=== PATIENT | male | born 1945 | race Caucasian/White ===

== ENCOUNTER → 2016-05-09 | Outpatient (CLI) | payer MEDICARE ==
[2015-10-03 14:00] VITALS: BP 104/55
[~2016-05-09] MED LIST: ASPI325T4 PO; ASPI81TA44 PO; CONTRAST GIVEN MC PRN; FLUT16SP NS; IOHEXOL 350 MG/ML 100ML VIAL. IV ONE; LANS15CA66 PO; LANS30CA17 PO; LEUP22.52 IM; LISI-334 PO; MEGE20TA PO; METF500T4 PO; METO1TAB PO; METO25TA2 PO; QUIN324C3 PO; SIMV20TA3 PO
[2016-05-09 08:29] LABS: CREATININE 1.2 mg/dL (0.7-1.3)
--- NOTE | 2016-05-12 12:55 | RAD ---
CTA chest, abdomen, and pelvis with and without contrast Indication: Follow-up endovascular repair of abdominal aortic aneurysm Comparison study: [facility] CTA abdomen and pelvis from 03/24/2015. Contrast material: 90 cc Omnipaque 350 Technique: Preliminary non-IV contrast CT images were obtained through chest, abdomen, and pelvis. Dynamic IV contrast CT images were then performed through chest, abdomen, and pelvis, and volume rendered three-dimensional and multi planar two-dimensional reconstructions were generated. Delayed postcontrast CT images were then obtained through chest, abdomen, and pelvis, and multi planar two-dimensional reconstructions were again generated. Correlation is made with the previous [facility] CTA from 03/24/2015. CTA chest: 1. Vascular findings: Aortic arch shows atherosclerotic elongation, without intimal flap and without aneurysmal dilatation. Origins of great vessels from aortic arch are widely patent. Coronary artery calcifications are noted. 2. Nonvascular findings: No noncalcified pulmonary soft tissue mass or consolidating infiltrate is detected. No significant thoracic lymphadenopathy is seen. Cardiac size is normal, without vascular congestion, pulmonary edema, or pleural fluid. CTA abdomen and pelvis: 1. Vascular findings: A widely patent bifurcated aortic endograft is again identified. Proximal and the distal landing zones of the endograft remain in excellent position, without evidence of migration. There is no evidence of graft component fracture or separation. There is no endoleak of any classification on today's study. There has been interval decrease in size of the residual thrombosed aneurysm sac, which now measures 40 mm in diameter versus 49 mm on the previous study. There is no evidence of aneurysm leak. Celiac trunk and SMA remain widely patent. There is no significant renal artery stenosis. Hypogastric arteries and visualized portions of external iliac arteries remain widely patent. Distal external iliac arteries and common femoral arteries are not included on this study. 2. Nonvascular findings: Liver and spleen remain unremarkable in size and configuration, without solid parenchymal mass. A solitary, minute gallbladder calculus cannot be excluded. There is no evidence of cholecystitis or biliary obstruction. No pancreatic or adrenal mass is detected. Kidneys remain similar in size, without urinary obstruction. Multiple bilateral simple cysts are again seen. A partially hyperdense, complex cystic lesion within right kidney is unchanged in size. A complex left renal cyst, with mural calcification, is also unchanged. No new or enlarging renal mass is detected. No significant retroperitoneal, pelvic, or inguinal lymphadenopathy is seen. No pelvic abscess, free fluid, or soft tissue mass is seen, although inferior pelvis is not included on this study. Previously described L2 vertebral body compression deformity is unchanged. Impression: Widely patent bifurcated aortic endograft shows no evidence of migration, fracture, or component separation. There is no endoleak of any classification. The residual, thrombosed aneurysm sac has decreased in size from 49 mm to 40 mm since March 2015.
== END | disposition home or self-care (01) ==
LOC: CT 07:46
PROVIDERS: ATTEND Internal Medicine Cardiovascular Disease
DX: I71.4 Abdominal aortic aneurysm, without rupture (principal); I25.10 Atherosclerotic heart disease of native coronary artery without angina pectoris; Z95.828 Presence of other vascular implants and grafts
CPT/HCPCS: 36415; 71275; 74175; 82565; 84520; Q9967

== ENCOUNTER 2016-06-24 18:24 | Inpatient (IN) | payer MEDICARE ==
[~2016-06-24] VITALS: Ht 185.4 cm; Wt 118.4 kg
[~2016-06-24 18:24] MED LIST changes: -CONTRAST GIVEN MC PRN; +HYDR-971 PO; -IOHEXOL 350 MG/ML 100ML VIAL. IV ONE; +LEVO750T31 PO; +METR500T PO
[2016-06-24] MEDS ORDERED: IPRATRPIUM/ALBUTEROL 0.5/2.5MG 3 ML NEBU. NEB ONE (18:45)
[2016-06-24] MEDS ORDERED: ONDANSETRON PF 4 MG/2 ML VIAL. IV ONE (18:45)
--- NOTE | 2016-06-24 18:46 | PHYS DOC ---
Past Medical History Past Medical History: CAD, Diabetes-Type II, Diverticulitis, GERD, High Cholesterol, Hypertension, Other Additional Past Medical Histor: AAA, BY-PASS Past Surgical History: Coronary Bypass Surgery, Other Additional Past Surgical Histo: AAA WITH ENDURANT II ABD STENT GRAFT,HEART CATH ,PROSTATE CA,RADIATION TX Alcohol Use: Rarely Drug Use: None Adult General Chief Complaint Chief Complaint: SHORTNESS OF BREATH HPI HPI 71-year-old male with significant shortness breath is worse in the last day and a half with subjective fever and chills with cough. Patient does have history of cardiac bypass surgery as well as an abdominal aortic graft for a known AAA. Upon arrival, the patient is saturating 85% on room air in no significant distress. He denies any chest pain whatsoever. He states his last cardiac workup was approximately one year ago by Dr. Solares. He denies any abdominal pain. He states subjective nausea but no vomiting. He has an appetite currently. He denies any COPD history. He also claims history of HTN, DM-II, and hyperlipidemia. Review of Systems Review of Systems Constitutional: Has fever and chills [] Eyes: Denies change in visual acuity, redness, or eye pain [] HENT: Denies nasal congestion or sore throat [] Respiratory: Has cough, has shortness of breath [] Cardiovascular: No additional information not addressed in HPI [] GI: Denies abdominal pain, has nausea, denies vomiting, denies bloody stools or diarrhea [] : Denies dysuria or hematuria [] Musculoskeletal: Denies back pain or joint pain [] Integument: Denies rash or skin lesions [] Neurologic: Denies headache, focal weakness or sensory changes [] Endocrine: Denies polyuria or polydipsia [] Current Medications Current Medications Current Medications Medications (Trade) Dose Ordered Sig/Lisbet Start Time Stop Time Status Last Admin Dose Admin Albuterol/ Ipratropium (Duoneb) 3 ml 1X ONCE 06/24/16 18:45 06/24/16 18:45 DC Ondansetron HCl (Zofran) 4 mg 1X ONCE 06/24/16 18:45 06/24/16 18:48 DC 06/24/16 18:57 4 MG Allergies Allergies Allergies Coded Allergies Type Severity Reaction Last Updated Verified No Known Drug Allergies 11/09/14 No Physical Exam Physical Exam Constitutional: Well developed, well nourished, no acute distress, non-toxic appearance. [] HENT: Normocephalic, atraumatic, bilateral external ears normal, oropharynx moist, no oral exudates, nose normal. [] Eyes: PERRLA, EOMI, conjunctiva normal, no discharge. [] Neck: Normal range of motion, no tenderness, supple, no stridor. [] Cardiovascular:Heart rate regular rhythm, no murmur [] Lungs & Thorax: Bilateral breath sounds clear to auscultation [] Abdomen: Bowel sounds normal, soft, no tenderness, no masses, no pulsatile masses. [] Skin: Warm, dry, no erythema, no rash. [] Back: No tenderness, no CVA tenderness. [] Extremities: No tenderness, no cyanosis, no clubbing, ROM intact, no edema. [] Neurologic: Alert and oriented X 3, normal motor function, normal sensory function, no focal deficits noted. [] Psychologic: Affect normal, judgement normal, mood normal. [] Current Patient Data Vital Signs Vital Signs Date Time Temp Pulse Resp B/P Pulse Ox O2 Delivery O2 Flow Rate FiO2 06/24/16 19:00 98 24 146/61 92 Nasal Cannula 4 06/24/16 18:32 99.9 99.9 Lab Values Laboratory Tests Test 06/24/16 18:30 06/24/16 18:35 Influenza Type A Antigen Negative (NEGATIVE) Influenza Type B Antigen Negative (NEGATIVE) White Blood Count 8.2x10^3/uL (4.0-11.0) Red Blood Count 4.95x10^6/uL (4.30-5.70) Hemoglobin 14.6g/dL (13.0-17.5) Hematocrit 43.6% (39.0-53.0) Mean Corpuscular Volume 88fL (79-100) Mean Corpuscular Hemoglobin 29pg (25-35) Mean Corpuscular Hemoglobin Concent 33g/dL (31-37) Red Cell Distribution Width 14.7% (11.5-14.5) H Platelet Count 175x10^3/uL (140-400) Neutrophils (%) (Auto) 81% (31-73) H Lymphocytes (%) (Auto) 9% (24-48) L Monocytes (%) (Auto) 8% (0-9) Eosinophils (%) (Auto) 0% (0-3) Basophils (%) (Auto) 1% (0-3) Neutrophils # (Auto) 6.7x10^3uL (1.8-7.7) Lymphocytes # (Auto) 0.8x10^3/uL (1.0-4.8) L Monocytes # (Auto) 0.7x10^3/uL (0.0-1.1) Eosinophils # (Auto) 0.0x10^3/uL (0.0-0.7) Basophils # (Auto) 0.1x10^3/uL (0.0-0.2) Sodium Level 139mmol/L (136-145) Potassium Level 4.6mmol/L (3.5-5.1) Chloride Level 100mmol/L (98-107) Carbon Dioxide Level 29mmol/L (21-32) Anion Gap 10 (6-14) Blood Urea Nitrogen 17mg/dL (8-26) Creatinine 1.1mg/dL (0.7-1.3) Estimated GFR (Cockcroft-Gault) 66.2 Glucose Level 111mg/dL (70-99) H Calcium Level 9.1mg/dL (8.5-10.1) Troponin I Quantitative < 0.017ng/mL (0.000-0.055) NU-Ghg-K-Type Natriuretic Peptide 62pg/mL (0-124) Laboratory Tests 06/24/16 18:35 Laboratory Tests 06/24/16 18:35 EKG EKG EKG interpreted by me shows a sinus rhythm with a rate of 81 bpm. There are some non-specific ST abnormalities in V4-V6 but the EKG does not meet STEMI critieria. Radiology/Procedures Radiology/Procedures Portable one view of the chest does not demonstrate an acute cardiopulmonary process. Course & Med Decision Making Course & Med Decision Making Pertinent Labs and Imaging studies reviewed. (See chart for details) This 71 yo male with ongoing SOB is requiring 4L of 02 of supplementary oxygen. His chest film and EKG at this time appear fairly unremarkable. I will be obtaining full labwork including influenza swabs. Laboratory workup including influenza swabs were negative and unrevealing. Patient has required 5-6 L of O2 upon my reassessment. Patient continues to be in no distress with his oxygen requirements. Because of his increase in oxygen requirements, I will be imaging his chest with a CT scan to rule out any PE or other acute abnormality. I discussed the need to admit the patient with the hospitalist, Dr. Presley, who agreed to admit the patient for his ongoing hypoxia. Pt was admitted to the floor after receiving a CT of his chest. I discussed the need with Dr. Barrow to follow the CT of his chest and to update Dr. Presley with any acute findings. Dragon Disclaimer Dragon Disclaimer This electronic medical record was generated, in whole or in part, using a voice recognition dictation system. Departure Departure Impression: Primary Impression: Dyspnea Additional Impression: Hypoxia Disposition: ADMITTED INPATIENT Admitting Physician: Belem Presley Condition: STABLE Referrals: CARMEN CHAIREZ (PCP) Problem Qualifiers NOVA VALENCIA DO Jun 24, 2016 18:46
[2016-06-24 18:47] LABS: BASO # 0.1 x10^3/uL (0.0-0.2); BASO % 1 % (0-3); EOS % 0 % (0-3); HEMATOCRIT 43.6 % (39.0-53.0); HEMOGLOBIN 14.6 g/dL (13.0-17.5); LYMPH # 0.8 x10^3/uL (1.0-4.8); LYMPH % 9 % (24-48); MEAN CORPUSCULAR HEMOGLOBIN 29 pg (25-35); MEAN CORPUSCULAR HGB CONC 33 g/dL (31-37); MEAN CORPUSCULAR VOLUME 88 fL (79-100); MONO % 8 % (0-9); NEUT % 81 % (31-73); PLATELET COUNT 175 x10^3/uL (140-400); RED BLOOD COUNT 4.95 x10^6/uL (4.30-5.70); RED CELL DISTRIBUTION WIDTH 14.7 % (11.5-14.5); WHITE BLOOD COUNT 8.2 x10^3/uL (4.0-11.0)
[2016-06-24 18:57] LABS: CALCIUM 9.1 mg/dL (8.5-10.1); CREATININE 1.1 mg/dL (0.7-1.3); GFR 66.2; POTASSIUM 4.6 mmol/L (3.5-5.1)
[2016-06-24 19:42] LABS: OBC FLU VALID
[2016-06-24] MEDS ORDERED: ONDANSETRON PF 4 MG/2 ML VIAL. IV PRN ×2 (19:45→22:22)
[2016-06-24] MEDS ORDERED: ACETAMINOPHEN 325 MG TABLET. PO PRN (19:45)
[2016-06-24] MEDS ORDERED: CONTRAST GIVEN MC PRN (20:15)
[2016-06-24] MEDS ORDERED: IOHEXOL 300 MG/ML 75 ML VIAL IV ONE (20:15)
--- NOTE | 2016-06-24 20:52 | RAD ---
PROCEDURE CT angiogram of the chest with intravenous contrast. HISTORY Shortness of breath. TECHNIQUE Computed tomographic images of the chest were obtained following the administration of 75 cc Omnipaque 300 intravenous contrast. Three-dimensional maximum intensity projection images were obtained. One or more of the following individualized dose reduction techniques were utilized for this examination: 1. Automated exposure control; 2. Adjustment of the mA and/or kV according to patient size; 3. Use of iterative reconstruction technique. COMPARISON 10/08/2015 FINDINGS Evaluation for pulmonary embolism is limited due to suboptimal contrast opacification of the segmental and subsegmental pulmonary arteries. No central pulmonary embolism is seen. There is a mild cardiomegaly. There are findings consistent with coronary artery bypass grafting. There is no thoracic aortic aneurysm or dissection. There are multiple prominent mediastinal and hilar lymph nodes, possibly reactive or physiologic. There is right greater than left lower lobe infiltrate. There is moderate upper lobe predominant emphysema. There is no pneumothorax. There is no pleural effusion. There is a tiny hiatal hernia. There is hepatic steatosis. The adrenal glands are unremarkable. There are multiple bilateral renal cysts, 1 of which on the left is seen within the lateral mid zone measuring approximately 3.6 cm with peripheral calcification. There are few additional hypodense lesions within both kidneys with attenuation slightly greater than fluid, likely hemorrhagic cyst. There is a 2.6 cm isodense lesion within the anterior mid zone of the right kidney which may be solid. There is partial visualization of endograft repair of an abdominal aortic aneurysm. No suspicious osseous lesion is seen. There is multilevel degenerative change throughout the thoracic spine. There is a moderate L2 compression fracture. IMPRESSION 1. Limited evaluation for pulmonary embolism due to suboptimal contrast opacification of the segmental and subsegmental pulmonary arteries. No central pulmonary embolism is seen. 2. Right greater left lower lobe pneumonia. Followup to confirm resolution. 3. Moderate pulmonary emphysema. 4. Multiple hypodense lesions within both kidneys, likely representing cysts. There is a 3.6 cm cyst with peripheral calcification within the lateral left kidney, similar compared to the prior study. There is also a 2.6 cm isodense lesion within the anterior right kidney which may be solid or complex cyst. Renal protocol CT or MRI for renal sonography can be performed to confirm benignity. 5. Hepatic steatosi. 6. Endograft repair of an abdominal aortic aneurysm, partially included on the field of view. Electronically signed by: Terri Womack (Jun 24, 2016 20:50:33)
[2016-06-24 22:05] VITALS: BP 114/57
[2016-06-24] MEDS ORDERED: HYDROCODONE/APAP 5/325MG TABLET. PO PRN (22:30)
[2016-06-24] MEDS ORDERED: DEXTROSE 50% 25 GM / 50ML DISP.SYRIN. IV PRN (22:30)
[2016-06-24] MEDS ORDERED: CEFTRIAXONE SODIUM 1 GM in IV NORMAL SALINE 50ML 50 ML IV SCH (22:30)
[2016-06-24] MEDS ORDERED: GUAIFENESIN DM 200MG/20MG 10 ML SYRUP. PO PRN (22:30)
[2016-06-24] MEDS ORDERED: AZITHROMYCIN 500 MG in IV NORMAL SALINE 250ML 250 ML IV SCH (23:00)
--- NOTE | 2016-06-25 00:19 | ACF ---
Admission Forms Criteria GENERAL ADMISSION CRITERIA (Place 'X' for any and all applicable criteria): Admission is indicated for ANY ONE of the following: [ ]I. Hemodynamic instability as indicated by ANY ONE of the following(1)(2) (3)(4)(5): [ ]a) Vital sign abnormality not readily corrected by appropriate treatment within 12 to 24 hours indicated by ANY ONE of the following: [ ]i) Hypotension [ ]ii) Symptomatic Tachycardia unresponsive to treatment (eg , analgesia, fluids, sedation as indicated) [ ]iii) Orthostatic vital sign changes unresponsive to treatment (eg, fluids) [ ]b) Vital sign abnormality that is severe indicated by ANY ONE of the following: [ ]i) Inadequate perfusion indicated by ANY ONE of the following: [ ]1) Lactic acidosis (greater than 2 mmol/L) [ ]2) New abnormal capillary refill (greater than 3 seconds) [ ]3) Other metabolic acidosis (arterial pH less than 7.35) not otherwise explained [ ]4) Reduced urine output [ ]5) Altered mental status [ ]6) Myocardial Ischemia [ ]v) Mean arterial pressure[A] less than 60 mm Hg [ ]vi) Mean arterial pressure[A] less than 70 mm Hg after 30 minutes of appropriate treatment (eg, fluid resuscitation) [ ]vii) IV inotropic or vasopressor medication required to maintain adequate blood pressure or perfusion [ ]viii) Sustained heart rate greater than 120 beats per minute in adult or child 6 years or older[B]] [ ]II. Hypertension requiring inpatient treatment as indicated by ANY ONE of the following(6)(7)(8): [ ]a) SBP greater than 220 mm Hg or DBP greater than 120 mm Hg despite treatment [ ]b) SBP greater than 140 mm Hg or DBP greater than 100 mm Hg with evidence of acute end organ damage as indicated by ANY ONE of the following: [ ]i) Encephalopathy [ ]ii) Acute renal failure as indicated by new onset of ANY ONE of the following(9)(10)(11)(12)(13): [ ]1) A 3-fold rise in serum creatinine from baseline [ ]2) Serum creatinine greater than 4 mg/dL ( 354 micromoles/L) with acute rise greater than 0.5 mg/dL (44.2 micromoles/L) [ ]3) Reduction of more than 75% in estimated glomerular filtration rate from baseline [ ]4) Estimated glomerular filtration rate less than 35 mL/min/1.73m2 (0.59 mL/sec/1.73m2) in child up to 18 years of age [ ]5) Cessation of urine output indicated by ALL of the following: [ ]A. Adequate volume status [ ]B. Inadequate urine output as indicated by ANY ONE of the following: [ ]a. Urine output less than 0.3 mL/kg/hr for 24 hours [ ]b. Anuria (urine output less than 0.1 mL/kg/hr) for 12 hours [ ]iii) Aortic dissection [ ]iv) Myocardial ischemia [ ]v) Left ventricular heart failure [ ]vi) Retinal hemorrhage [ ]vii) Other significant finding [ ]c) Hypertension in child requiring inpatient treatment as indicated by ALL of the following(14)(15)(16): [ ]i) Outpatient treatment not effective, not available, or not appropriate [ ]ii) SBP or DBP greater than 95th percentile for age [ ]iii) Evidence of acute end organ damage as indicated by ANY ONE of the following: [ ]1) Altered mental status [ ]2) Acute renal failure as indicated by new onset of ANY ONE of the following(9)(10)(11)(12)(13): [ ]A. A 3-fold rise in serum creatinine from baseline [ ]B. Serum creatinine greater than 4 mg/dL (354 micromoles/L) with acute rise greater than 0.5 mg/dL (44.2 micromoles/L) [ ]C. Reduction of more than 75% in estimated glomerular filtration rate from baseline [ ]D. Estimated glomerular filtration rate less than 35 mL/min/1.73m2 (0.59 mL/sec/1.73m2)in child up to 18 years of age [ ]E. Cessation of urine output indicated by ALL of the following: [ ]a. Adequate volume status [ ]b. Inadequate urine output as indicated by ANY ONE of the following: [ ]1) Urine output less than 0.3 mL/kg/hr for 24 hours [ ]2) Anuria (urine output less than 0.1 mL/kg/hr) for 12 hours [ ]3) Severe headache [ ]4) Visual disturbance [ ]5) Retinal hemorrhage [ ]6) Other significant finding [ ]III. Acute cardiac or peripheral ischemia as indicated by ANY ONE of the following: [ ]a) Acute coronary syndrome(17)(18) [ ]b) Acute peripheral ischemia (eg, pulseless, cool, mottled, or cyanotic extremity)(19) [ ]IV. Cardiac arrhythmias or findings of immediate concern indicated by ANY ONE of the following(20)(21): [ ]a) Heart rhythms that are inherently dangerous or unstable indicated by ANY ONE of the following(22)(23)(24): [ ]i) Resuscitated ventricular fibrillation or cardiac arrest [ ]ii) Ventricular escape rhythm [ ]iii) Sustained ventricular tachycardia (30 seconds or more of ventricular rhythm at greater than 100 beats per minute) [ ]iv) Nonsustained ventricular tachycardia and ANY ONE of the following: [ ]1) Suspected cardiac ischemia as cause or consequence of ventricular tachycardia [ ]2) In setting of acute myocarditis [ ]b) Unstable cardiac conduction defects indicated by ANY ONE of the following(24)(25)(26): [ ]i) Type II second-degree atrioventricular block [ ]ii) Third-degree atrioventricular block [ ]iii) New-onset left bundle branch block with suspected myocardial ischemia [ ]c) Any heart rhythm and ANY ONE of the following(22)(23)(27)(28)( 29): [ ] i) Continuous long-term ECG monitoring needed (eg, initiation of drug requiring monitoring for more than 24 hours) [ ] ii) Patient has automatic implanted cardioverter defibrillator that is repeatedly firing, malfunctioning, or in need of immediate adjustment of settings beyond the scope of ambulatory or observation care. [ ]d) Heart rhythms of concern due to ANY ONE of the following: [ ]i) Hypotension [ ]ii) Respiratory distress [ ]iii) Association with other significant symptoms (eg, bradycardia with syncope or ongoing dizziness, supraventricular tachycardia with chest pain) (27)(28) (30) [ ] V. Severe heart failure as indicated by ANY ONE of the following ( 31)(32): [ ]a) Respiratory distress [ ]b) Hypotension [ ]c) Anasarca (refractory to outpatient therapy) [ ]d) Cardiac arrhythmias of immediate concern [ ]e) Myocardial ischemia [X]. Respiratory abnormalities, including ANY ONE of the following(33)(34) (35)(36): [ ]a) Respiratory rate greater than 30 breaths per minute unresponsive to treatment [A] [ ]b) New saturation of arterial oxygen less than 90% [ ]c) New partial pressure of carbon dioxide greater than 44 mm Hg ( 5.9 kPa) [X]d) Supplemental oxygen or respiratory treatments needed that are new or not performable at other levels of care [ ]e) New-onset cyanosis [ ]f) Inability to protect airway [ ]g) Chronic lung disease with severe deterioration (not responsive to emergency and observation care treatment as appropriate) as indicated by ANY ONE of the following(34)(36 ): [ ]i) SaO2 5% below baseline in patient with chronic hypoxemia [ ]ii) New requirement for supplemental oxygen to keep SaO2 at baseline or acceptable level [ ]iii) Required supplemental oxygen performable only in acute inpatient setting [ ]iv) Severe airflow or ventilation abnormalities [ ]v) Previously mobile patient unable to walk between rooms [ ]vi Inability to eat or sleep due to dyspnea [ ]vii) Rapid rate of exacerbation onset [ ]viii) Altered mental status ]VII. Severe airflow or ventilation abnormalities (not responsive to emergency and observation care treatment as appropriate) as indicated by ANY ONE of the following(33)(34)(35)(37): [ ]a) PCO2 greater than 42 mm Hg (5.6 kPa) and pH less than 7.35 (new ) [ ]b) Documented PCO2 increased more than 5 mm Hg (0.7 kPa) from disease baseline [ ]c) Airflow measurements [B] less than 60% of previous best or predicted (eg, peak expiratory flow rate less than 300 L/minute) despite intensive emergent treatment [C] [ ]d) Required respiratory treatments that are performable only in acute inpatient setting [ ]VIII. Impending or actual respiratory arrest ( Also use Respiratory Failure GRG for severe respiratory disease and long-term mechanical ventilation patients) [ ]IX. Neurologic abnormalities, including ANY ONE of the following: [ ]a) New findings that suggest ANY ONE of the following: [ ]i) KICKING MACHINE O[employer]ATOR infection(38) [ ]ii) Cerebral bleeding, ischemia, or vasospasm(39)(40) [ ]iii) Increased intracranial pressure, hydrocephalus, or cerebral edema(41)(42)(43) [ ]iv) Spinal cord injury(44) [ ]b) Uncontrolled seizures(45) [ ]c) New-onset coma (eg, Stephanie coma scale score less than 9) or unexplained abnormal mental status (eg, Stephanie coma scale score less than 14) [D](41)(46)(47) [ ]X. New-onset severe neurologic findings requiring inpatient care; examples include(42)(48)(49): [ ]a) Papilledema [ ]b) Cerebral edema [ ]c) Mass effect on CT scan [ ]XI. Suspected acute intra-abdominal process with peritoneal signs, abdominal mass, or similar findings (50)(51)(52) [ ]XII. Severe physiologic disorder remaining after emergency or observation level care (as appropriate) as indicated by ANY ONE of the following (53): [ ]a) Significant dehydration [ ]b) Diabetic ketoacidosis [ ]c) Hyperglycemic hyperosmolar state (eg, osmolality greater than 320 mOsm/kg (mmol/kg) [ ]d) Hypoglycemia [ ]e) Other (new) acid-base disorder with pH less than 7.35 or greater than 7.5(54) [ ]f) Thyroid storm (55) [ ]g) Myxedema coma (55) [ ]XIII. Abdominal abnormalities with ANY ONE of the following(56)(57): [ ]a) Absent bowel sounds with complete ileus [ ]b) Signs of intestinal obstruction or peritonitis [E] [ ]c) Nausea and vomiting that cannot be controlled with outpatient or observation care [ ]XIV. Acute renal failure as indicated by new onset of ANY ONE of the following(9)(10)(11)(12)(13): [ ]a) A 3-fold rise in serum creatinine from baseline [ ]b) Serum creatinine greater than 4 mg/dL (354 micromoles/L) with acute rise greater than 0.5 mg/dL (44.2 micromoles/L) [ ]c) Reduction of more than 75% in estimated glomerular filtration rate from baseline [ ]d) Estimated glomerular filtration rate less than 35 mL/min/ 1.73m2 (0.59 mL/sec/1.73m2) in child up to 18 years of age [ ]e) Cessation of urine output indicated by ALL of the following: [ ]i) Adequate volume status [ ]ii) Inadequate urine output as indicated by ANY ONE of the following: [ ]1) Urine output less than 0.3 mL/kg/hr for 24 hours [ ]2) Anuria (urine output less than 0.1 mL/kg/hr) for 12 hours [ ]XV. Significant uremic complications as indicated by ANY ONE of the following(58)(59)(60): [ ]a) Outpatient therapy is ineffective or not feasible for ANY ONE of the following: [ ]i) Severe heart failure [ ]ii) Severehypertension [ ]iii) Pleural effusion [ ]iv) Pericarditis or pericardial effusion [ ]b) Cardiac arrhythmias of immediate concern [ ]c) Intractable nausea or vomiting [ ]d) Recurrent seizures [ ]e) Encephalopathy [ ]f) Bleeding abnormalities (eg, platelet dysfunction) with active (eg, gastrointestinal) bleeding [ ]g) Dialysis indicated before long-term access or ambulatory arrangements can be made [ ]h) Significant metabolic or electrolyte abnormalities (eg, severe acidosis or hyperkalemia) [ ]XVI. High fever or other high-risk infection situation as indicated by ANY ONE of the following(61)(62)(63)(64): [ ]a) Outpatient and observation care antimicrobial treatment unavailable, not effective, or not appropriate [ ]b) Documented bacteremia [ ]c) Temperature greater than 40.5 degrees C (104.9 degrees F) ( oral) [ ]d) Temperature greater than 39.5 degrees C (103.1 degrees F) ( oral) or less than 36 degrees C (96.8 degrees F) (rectal) that does not respond to e treatment and observation care [ ] XVII. Temperature less than 95 degrees F (35 degrees C)(rectal)(65) [ ] XVIII. Severe nutritional abnormalities as indicated by ALL of the following (66)(67): [ ]a) Inability to tolerate or establish sufficient oral or other enteral nutrition in outpatient setting [ ]b) Parenteral nutrition regimen need that must be implemented on inpatient basis [ ] XIX. Severe electrolyte abnormalities indicated by ALL of the following(68) (69)(70): [ ]a) Electrolytes and associated findings are not as expected for patient baseline or acceptable treatment effects. [ ]b) Severe abnormalities indicated by ANY ONE of the following: [ ]i) Sodium less than 130 mEq/L (mmol/L) (new) [ ]ii)Sodium less than 135 mEq/L (mmol/L) with ANY ONE of the following: [ ]1) Uncorrectable (to near normal or chronic baseline) after trial of outpatient and emergency treatment [ ]2) Altered mental status [ ]3) Seizures [ ]4) Severe medical etiology requiring inpatient management (eg, heart failure, hypovolemia) [ ]iii) Sodium greater than 155 mEq/L (mmol/L) [ ]iv) Sodium greater than 150 mEq/L (mmol/L) with ANY ONE of the following: [ ]1) Uncorrectable (to near normal or chronic baseline) with outpatient and emergency treatment [ ]2) Altered mental status [ ]3) Seizures [ ]4) Severe medical etiology (eg, hypovolemia, diabetes insipidus) [ ]v) Potassium less than 2.5 mEq/L (mmol/L) despite outpatient and emergency treatment [ ]vi) Potassium less than 3 mEq/L (mmol/L) with ANY ONE of the following: [ ]1) Weakness [ ]2) Cardiac abnormality (eg, arrhythmia, conduction disturbance) [ ]3) Cardiac ischemia [ ]4) Ileus [ ]5) Ongoing medical cause requiring inpatient management (eg, acute renal wasting or SIADH) [ ]6) Other severe symptoms [ ]vii) Potassium greater than 6.5 mEq/L (mmol/L) [ ]viii) Potassium greater than 5 mEq/L (mmol/L) with ANY ONE of the following: [ ]1) Uncorrectable (to near normal or chronic baseline) with outpatient and emergency treatment [ ]2) Severe ECG findings [F] [ ]3) Acute worsening of renal failure (creatinine greater than 2.5 mg/dL (221 micromoles/L) or significant elevation for age and size) [ ]4) Severe weakness [ ]5) Severe medical etiology (eg, hemolysis, infection, drug overdose) [ ]ix) Calcium less than 7 mg/dL (1.75 mmol/L) despite outpatient and emergency treatment (72) [ ]x) Calcium less than 8 mg/dL (2 mmol/L) with significant symptoms or findings; examples include(72): [ ]1) Altered mental status [ ]2) Muscle spasms [ ]3) Seizures [ ]4) Breathing difficulty [ ]5) Cardiac abnormality (eg, arrhythmia or conduction disturbance) [ ]xi) Calcium greater than 14 mg/dL (3.5 mmol/L)(72) [ ]xii) Calcium greater than 12 mg/dL (3 mmol/L) with ANY ONE of the following(72): [ ]1) Uncorrectable (to near normal or chronic baseline) with outpatient and emergency treatment [ ]2) Significant dehydration or hypovolemia as indicated by ALL of the following(70)(73)(74): [ ]A. Not resolved with initial treatments [ ]B. Clinically significant dehydration as indicated by ANY ONE of the following: [ ]a. Vomiting refractory to outpatient treatment (ie, precluding oral rehydration) [ ]b. Inability to drink [ ]c. Hypernatremia or other electrolyte abnormality unable to be corrected with outpatient and emergency treatment [ ]d. Failure to remain hydrated with outpatient therapy [ ]e. Reduced urine output [ ]f. Hypotension [ ]g. Serious cause for dehydration requiring acute hospitalization (eg, bowel obstruction, increased intracranial pressure, infectious cause) [ ]h. Child with ANY ONE of the following(75): [ ]1) Severe abdominal tenderness [ ]2) Adequate care not available at home [ ]3) Severe dehydration ( greater than 9% loss of body weight) [ ]4) Significant symptoms or findings; examples include: [ ]A. Altered mental status [ ]B. Cardiac abnormality (eg, arrhythmia, conduction disturbance) [ ]C. Malignant etiology requiring inpatient treatment [ ]xiii) Phosphorus less than 1 mg/dL (0.32 mmol/L) [ ]xiv) Phosphorus less than 1.5 mg/dL (0.48 mmol/L) with ANY ONE of the following: [ ]1) Patient unresponsive to outpatient and emergency treatment [ ]2) Significant symptoms or findings; examples include: [ ]A. Weakness [ ]B. Altered mental status [ ]C. Breathing difficulty [ ]D. Seizures [ ]E. Rhabdomyolysis [ ]xv) Phosphorus greater than 10 mg/dL (3.2 mmol/L) [ ]xvi) Phosphorus greater than 4.5 mg/dL (1.45 mmol/L) (new) with ANY ONE of the following: [ ]1) Severe medical etiology (eg, crush injury, acute renal failure) [ ]2) Associated hypocalcemia with significant findings; examples include: [ ]A. Neurologic symptoms [ ]B. Altered mental status [ ]C. Muscle spasms [ ]D. Seizures [ ]E. Breathing difficulty [ ]F. Cardiac abnormality (eg, arrhythmia, conduction disturbance) [ ]xvii) Magnesium less than 1 mg/dL (0.41 mmol/L) [ ]xviii) Magnesium less than 1.5 mg/dL (0.62 mmol/L) with ANY ONE of the following: [ ]1) Patient unresponsive to outpatient and emergency treatment [ ]2) Associated hypocalcemia with significant findings; examples include: [ ]A. Altered mental status [ ]B. Muscle spasms [ ]C. Seizures [ ]D. Breathing difficulty [ ]E. Cardiac abnormality (eg, arrhythmia , conduction disturbance) [ ]3) Associated hypokalemia (potassium less than 3 mEq/L (mmol/L)) with risk of arrhythmia [ ]xix) Magnesium greater than 4 mEq/L (2 mmol/L) [ ]xx) Magnesium greater than 2.5 mEq/L (1.25 mmol/L) with significant symptoms or findings; examples include: [ ]1) Weakness [ ]2) Altered mental status [ ]3) Cardiac abnormality (eg, arrhythmia, conduction disturbance) [ ]4) Breathing difficulty [ ]5) Severe medical etiology (eg, renal failure, hypovolemia) [ ]xxi) Uric acid greater than 20 mg/dL (1190 micromoles/L)(76) [ ]xxii) Uric acid greater than 8 mg/dL (476 micromoles/L) with significant symptoms or findings of tumor lysis syndrome; examples include(76): [ ]1) Creatinine greater than 1.5 times upper limit of normal [ ]2) Cardiac abnormality (eg, arrhythmia, conduction disturbance) [ ]3) Seizure [ ]XX. Acute blood loss causing significant abnormality as indicated by ANY ONE of the following(77)(78): [ ]a) Hemoglobin less than 10 g/dL (100 g/L) (not baseline) [ ]b) Hematocrit less than 30% (0.30) (not baseline) [ ]c) Repeat hematocrit decreased more than 2% (0.02) [ ]d) Uncontrolled bleeding [ ]XXI. Severe anemia indicated by ANY ONE of the following(78)(79): [ ]a) Altered mental status [ ]b) Chest pain [ ]c) Exertional dyspnea [ ]d) Syncope [ ]e) Other findings suggesting inadequate perfusion [ ]f) Treatment with transfusion or volume replacement is ineffective at resolving ANY ONE of the following [G]: [ ]i) Tachycardia for age [ ]ii) Orthostatic vital sign changes as indicated by ANY ONE of the following(80): [ ]1) Fall in SBP of 20 mm Hg or more 1 to 3 minutes after patient sits or stands from recumbent position [ ]2) Fall in DBP of 10 mm Hg or more 1 to 3 minutes after patient sits or stands from recumbent position [ ]XXII. High-risk low platelet count as indicated by ANY ONE of the following( 81)(82): [ ]a) Severe or life-threatening bleeding (eg, intracranial, major gastrointestinal, or extensive mucosal bleeding), with any reduced platelet count [ ]b) Platelet count less than 20,000/mm3 (20 x109/L) with any active bleeding [ ]c) Platelet count less than 10,000/mm3 (10 x109/L) with minor purpura or petechiae [ ]d) Platelet count less than 5000/mm3 (5 x109/L) [ ]e) Low platelet count with hemolytic anemia [ ]XXIII. Disseminated intravascular coagulation(77)(83) [ ]XXIV. Severe adverse drug or systemic toxin reaction requiring inpatient treatment; examples include(84)(85): [ ]a) Serotonin syndrome(86) [ ]b) Neuroleptic malignant syndrome(86) [ ]c) Cholinergic syndrome with severe symptoms (eg, bronchorrhea, weakness, mental status changes, seizures) [ ]d) Sympathetic syndrome with severe symptoms (eg, seizures, mental status changes, cardiac dysrhythmias) [ ]e) Anticholinergic syndrome [ ]XXV. Severe pain requiring acute inpatient management as indicated by ALL of the following (87)(88)(89): [ ]a) Continuous or frequent (eg, every 2 to 4 hours) parenteral analgesics required [H] [ ]b) Rapid improvement expected from treatment or acute intervention (eg, surgery, anesthesia procedure) [ ]XXVI.Severe behavioral health issues judged unmanageable at a lower level of care (eg, residential) in a patient who is ANY ONE of the following(91) [ ]a) Acutely suicidal [ ]b) A danger to self (eg, self-mutilating or suicidal behavior) [ ]c) A danger to others (eg, assaultive or homicidal behavior) [ ]d) Incapacitated because of grave disability (eg, inability to provide for self at lower level of care) (92) [ ]XXVII. Inpatient monitoring needed; examples include(1)(3)(87)(93)(94)(95)(96 ): [ ]a) Vital signs, neurologic signs, or vascular checks more frequently than every 4 hours [ ]b) Cardiac or respiratory monitoring beyond the scope (eg, over 24 hours) of observation care [ ]c) Pulmonary artery catheter monitoring [ ]d) Suspected compartment syndrome(97) (98) [ ]e) Cerebral bleeding, hydrocephalus, or vasospasm monitoring [ ]f) Increased intracranial pressure or cerebral edema monitoring [ ]g) monitoring [ ]XXVIII. Treatment requiring inpatient care; examples include: [ ]a) IV fluid to replace significant ongoing losses (greater than 3 L/m2 per day)(53) [ ]b) High concentration oxygen (greater than 40%)(33)(99)(100) [ ]c) Frequent respiratory therapy (more frequently than every 4 hours) to maintain airflow rates greater than 60% of baseline(33)(99)(100) [ ]d) Epidural analgesia(87) [ ]e) IV anticoagulation, vasoactive, or antiarrhythmic medication(19 )(23) [ ]f) Acute thrombolytics (generally require 24 hours of observation )(101)(102) [ ]XXIX. Emergency procedures needed; examples include: [ ]a) Emergency inpatient surgery [ ]b) Temporary pacemaker placement(103) [ ]c) Chest tube placement with active evacuation (eg, suction, drainage)(104) [ ]d) Emergent cardioversion(105) [ ]e) Emergent cardiac or vascular procedures (eg, cardiac catheterization, angioplasty) (17)(18) [ ]f) Emergent dialysis access placement and institution(10)(106) [ ]g) Emergent pericardiocentesis(107) [ ]h) Emergent plasmapheresis or leukapheresis(83) [ ]i) Emergent tracheostomy The original [employer] content created by [employer] has been revised. The portions of the content which have been revised are identified through the use of italic text or in bold, and [facility] has neither reviewed nor approved the modified material. All other unmodified content is copyright [employer]. Please see references footnoted in the original [facility] edition 2016 Admission Criteria Met?: Yes MARTIAN PRICE Jun 25, 2016 00:19
[2016-06-25 03:35] VITALS: BP 102/48
[2016-06-25 04:40] LABS: BASO # 0.1 x10^3/uL (0.0-0.2); BASO % 0 % (0-3); EOS % 0 % (0-3); HEMATOCRIT 39.3 % (39.0-53.0); HEMOGLOBIN 13.1 g/dL (13.0-17.5); LYMPH # 0.9 x10^3/uL (1.0-4.8); LYMPH % 6 % (24-48); MEAN CORPUSCULAR HEMOGLOBIN 29 pg (25-35); MEAN CORPUSCULAR HGB CONC 33 g/dL (31-37); MEAN CORPUSCULAR VOLUME 88 fL (79-100); MONO % 6 % (0-9); NEUT % 88 % (31-73); PLATELET COUNT 151 x10^3/uL (140-400); RED BLOOD COUNT 4.49 x10^6/uL (4.30-5.70); RED CELL DISTRIBUTION WIDTH 14.4 % (11.5-14.5); WHITE BLOOD COUNT 14.2 x10^3/uL (4.0-11.0)
[2016-06-25 04:52] LABS: CALCIUM 8.6 mg/dL (8.5-10.1); CREATININE 1.4 mg/dL (0.7-1.3); GFR 50.1; POTASSIUM 4.7 mmol/L (3.5-5.1)
[2016-06-25 06:03] LABS: PLT ESTIMATE ADEQUATE (ADEQUATE)
[2016-06-25 07:00] VITALS: BP 100/51
[2016-06-25] MEDS: IPRATRPIUM/ALBUTEROL 0.5/2.5MG 3 ML NEBU. NEB SCH ×3 (07:16→15:14)
[2016-06-25] MEDS: INSULIN ASPART 300 UNITS/3 ML INSULN.PEN SQ SCH ×2 (08:00→12:04)
--- NOTE | 2016-06-25 08:30 | RAD ---
Indication shortness of air. History of hypertension. A single view of the chest was obtained and is compared to a study 10/12/2007. Postoperative changes are noted. Heart size is within normal limits. There is no gross congestive heart failure. There is some volume loss at the lung bases compatible with atelectasis or pneumonia. Significant pleural fluid in either lung is not seen. IMPRESSION: Modest volume loss at the lung bases right slightly greater than left compatible with atelectasis or pneumonia
--- NOTE | 2016-06-25 08:33 | PDOC ---
Provider Note Provider Note [id number] acute resp fail ae of copd pneumonia abc, neb, ics,... HARPER TRUJILLO MD Jun 25, 2016 08:33
[2016-06-25] MEDS ORDERED: LISINOPRIL 20 MG TABLET PO SCH (09:00)
[2016-06-25] MEDS ORDERED: FLUTICASONE 50MCG/NASAL SPRAY 16GM BOTTLE. NS SCH (09:00)
[2016-06-25] MEDS ORDERED: METOPROLOL SUCC 24HR ER 25 MG TAB.ER.24H. PO SCH (09:00)
[2016-06-25] MEDS ORDERED: ASPIRIN 81 MG TAB.CHEW PO SCH (09:00)
[2016-06-25] MEDS ORDERED: BUDESONIDE 0.5 MG/2 ML NEBU NEB SCH (09:00)
--- NOTE | 2016-06-25 10:15 | RAD ---
Indication renal cyst versus mass. Grayscale imaging targeted to the kidneys was performed. Note is made of a CT examination of the chest, incorporating the upper abdomen, referencing renal masses one day earlier. The right kidney measures 15 x 6.3 x 6.4 cm. There is a complex nodule measuring 2.6 cm in the midportion of the right kidney. This nodule, on CT, appears slightly larger, by approximately 5 to 6 mm when compared to a CT examination 10/23/2011. It may represent a complex cyst. A solid mass is not excluded. Surveillance imaging, assessing stability, should be considered. Alternatively a multiphase contrast CT examination could be performed. The mass appears to be at least partially cystic if not completely cystic in nature. The left kidney measures 15.6 x 6 x 6.3 cm. There are several cysts in the left kidney the largest measuring almost 4 cm. The urinary bladder appears grossly normal. IMPRESSION: There are cysts in both kidneys. There is either a complex cyst or a cystic/solid mass in the right kidney. Surveillance imaging assessing stability should be considered. See above discussion.
[2016-06-25 11:00] VITALS: BP 108/58
--- NOTE | 2016-06-25 11:30 | EKG ---
[facility] [address] [place] [address] Test Date: 2016-06-24 Test Time: 18:33:08 Pat Name: SHIRA VOGT Department: Room: Gender: M Fine Arts Chair: : 1945 Requested By: NOVA VALENCIA Order Number: [id number] Reading MD: Measurements Intervals [place] Rate: 81 P: -26 NE: 170 QRS: 23 QRSD: 84 T: 91 QT: 342 QTc: 398 Interpretive Statements SINUS RHYTHM ATRIAL PREMATURE COMPLEX(ES) QRS(T) CONTOUR ABNORMALITY CONSIDER ANTEROLATERAL MYOCARDIAL DAMAGE POSSIBLY ABNORMAL ECG RI6.01 No previous ECG available for comparison
--- NOTE | 2016-06-25 11:55 | CONS ---
DATE OF CONSULTATION: 06/25/2016 I was asked to see this 71-year-old gentleman for shortness of breath, cough, abnormal CT of the chest. HISTORY OF PRESENT ILLNESS: He does have history of a [id number]-ekwd smoking, stopped smoking in 2007. He has not been diagnosed with COPD or asthma. He ____ exercise. He started to have increased shortness of breath, cough with yellow sputum production and fever 2 days ago. He denies chest pain. He has chest tightness. He denies wheezing. He denies runny nose or gastroesophageal reflux symptoms with asthma and he takes Flonase and Protonix. PAST MEDICAL HISTORY: Diabetes mellitus, hypertension, coronary artery disease status post CABG in 2007, abdominal aortic aneurysm repair and hyperlipidemia. ALLERGIES: No known drug allergies. MEDICATION: Currently he is on albuterol and Atrovent nebulizer t.i.d., azithromycin, Rocephin. SOCIAL HISTORY: History of 68-[id number]-[id number] smoking, stopped smoking in 2007. FAMILY HISTORY: There is no history of lung disease. REVIEW OF SYSTEMS: As mentioned as above. He does snore and has excessive daytime sleepiness with ____. Other systems otherwise negative. PHYSICAL EXAMINATION: GENERAL: Overall weight gentleman. VITAL SIGNS: His O2 saturation is 96% on 5 liters of oxygen, respiratory rate 20, heart rate 66, blood pressure 100/61, temperature 97.8. HEENT: Normocephalic, atraumatic. Pupils are equal, round and reactive to light. Throat is clear. There is dependent palate, high tongue base. Nose: There is inflamed mucosa. NECK: There is no JVD, lymphadenopathy or organomegaly. CARDIOVASCULAR: Regular rate and rhythm. PMI is nondisplaced. CHEST: Inspection is normal. LUNGS: There is bibasilar crackles, a few end expiratory wheezing. ABDOMEN: Soft, bowel sounds are good. There is no mass. EXTREMITIES: There is no clubbing or cyanosis. LYMPHATICS: There is no lymphadenopathy. SKIN: Chronic changes. NEUROLOGIC: Alert and oriented x 3. LABORATORY DATA: I reviewed the following lab data: CT of the chest show central pulmonary embolism, lower lobe infiltrate, right more than left; emphysematous changes; hypodense lesions in both kidneys, hepatic steatosis and/or graft repair of abdomen and aortic aneurysm. Influenza A and B is negative. Sodium 138, potassium 4.7, chloride 102, CO2 of 26, glucose 130, BUN 23, creatinine 1.4. Troponin less than 0.01. WBC 14.2, hemoglobin 13.1, platelets 151. IMPRESSION: 1. Acute hypoxemic respiratory failure, multifactorial in etiology. 2. Abnormal CT of the chest show some pulmonary infiltrate. 3. Pneumonia. 4. Emphysema/chronic obstructive pulmonary disease. 5. Snoring and excessive daytime sleepiness on obesity problem with obstructive sleep apnea hypopnea syndrome. 6. Coronary artery disease. 7. Diabetes mellitus. 8. Hypertension. 9. Hyperlipidemia. PLAN AND RECOMMENDATION: 1. Titrate FiO2 to keep O2 saturation 92%. 2. Continue bronchodilator. 3. Add inhale to corticosteroid. 4. Sputum culture. 5. Urine for legionella and strep pneumoniae antigen. 6. Continue Rocephin and erythromycin. 7. I do recommend PFTs as an all questions. 8. I have discussed obstructive sleep apnea hypopnea syndrome. The importance of treatment, if one treated increased cardiovascular ____. I do recommend as put patient. 9. Agree with ultrasound of kidneys. 10. Protonix for stress ulcer prophylaxis. 11. I start Lovenox for DVT prophylaxis. 12. The findings and recommendations were discussed with the patient and his . He understood and agreed to proceed with the plan. I have answered all of the questions. Thank you very much for allowing me to participate in care of this very nice gentleman. RADHA GARCIA MD DR: RADHA/candice JOB#: [id number] / [id number]
--- NOTE | 2016-06-25 13:29 | PDOC ---
Provider Note Provider Note 23 hr note done, JOb [id number] Titrate O2 down See if 6MW needed Otherwise could go home today Rx inc ANA LUISA Gtz MD Jun 25, 2016 13:29
--- NOTE | 2016-06-25 14:05 | SSS ---
ADMIT DATE: 06/24/2016 A 23-HOUR ADMIT AND DISCHARGE SUMMARY CHIEF COMPLAINT: Short of breath. HISTORY OF PRESENT ILLNESS: The patient is a 71-year-old male who has shortness of breath, cough, maybe fevers at home? He had low O2 sat in the Emergency Room, hence admitted. Eventually, chest x-ray initially did not, maybe showed atelectasis, unclear if there were any infiltrates. This was followed through by a CAT scan to rule out PE because of the significant hypoxia at the Emergency Room and CAT scan was able to verify a left lower lobe lung pneumonia. The patient does relate to me symptoms of pneumonia including productive sounding cough, colored sputum, fevers at home. He does not have a white count. He is breathing much better now, although he is on nasal cannula at 5 liters. He claims he ambulates without getting short of breath today. He did have pneumonia many times in the past. He is a previous smoker, has quit many years ago. Emphysematous changes are seen or appreciated on the CAT scan. I did consult Pulmonary last night, based on reviewing with the ER physician. Pulmonary has no further recommendations ____ nebulizations, antibiotics. Did discuss with the that pneumonia can be treated as outpatient. We will titrate his O2 sats down today to see if he needs O2, otherwise 6-minute walk test can be done if he needs oxygenation. then he will go home with oxygen. In the past episodes of his pneumonia, he did not have to have oxygenation. PAST MEDICAL HISTORY: Open heart surgery in distant past, hypertension, and dyslipidemia, on a statin. ALLERGIES: No known drug allergies. SOCIAL HISTORY: Previous smoker, no alcohol, no street drugs. FAMILY HISTORY: Reviewed and noncontributory. REVIEW OF SYSTEMS: All 14-point systems were reviewed. Pertinent positives are in the HPI, all else is negative. PHYSICAL EXAMINATION: GENERAL: Awake, alert, oriented x 3, not in acute respiratory distress. VITAL SIGNS: Blood pressure 108/58, heart rate 74, respiratory rate 12, and satting 95% on 5 liters of nasal cannula. LUNGS: Decreased breath sounds. No crackles, rhonchi, or wheezing. Normal rate and rhythm. No murmurs, rubs or gallops, JVD nondistended. ABDOMEN: Obese and nontender, normal active bowel sounds. GENITALIA: Appropriate for age. EXTREMITIES: Negative edema. Pulses full and equal. No pallor, cyanosis ____. NEUROLOGIC: Otherwise within normal limits. PSYCHIATRIC: Otherwise within normal limits. SKIN: Otherwise within normal limits. ASSESSMENT AND PLAN: 1. Left lower lobe pneumonia. 2. Emphysema in a previous ex-smoker. 3. Obesity. 4. History of coronary artery bypass graft, distant past, hypertension, dyslipidemia, all status quo. 5. Hypoxic respiratory failure, needing O2 requirements with plan of care. Titrate O2 now. Levaquin p.o. on discharge. ProAir HFA, on discharge. They already have nebulization machines at home. If he drops significantly, then will prescribe O2 at home. HOSPITAL COURSE: The patient was admitted overnight, felt better overnight with treatment of nebulizations O2 antibiotics. Left lower lobe pneumonia on CAT scan. Emphysema on CAT scan. Nontoxic appearing, ambulating well with no SOA. Requiring 5 liters nasal cannula, though to maintain sats at 95%. We will also do a 6-minute walk. DISPOSITION: To home, either with or without home O2. CONSULTS PERFORMED: Dr. Lucas, Pulmonary. PROCEDURES PERFORMED: None. Time spent with this patient education and counseling greater than 50%, 45 minutes cumulative. ANA LUISA MIRANDA MD DR: /nts JOB#: [id number] / [id number]
[2016-06-25 15:00] VITALS: BP 109/59
[2016-06-25] MEDS ORDERED: SIMVASTATIN 20 MG TABLET PO SCH (21:00)
[2016-06-26 16:19] LABS: SPECIMEN SOURCE Urine (.)
[2016-06-27] MEDS ORDERED: METFORMIN 500 MG TABLET. PO SCH (08:00)
--- NOTE | 2016-06-28 16:11 | CONS ---
DATE OF CONSULTATION: 06/25/2016 I was asked to see this 71-year-old gentleman for shortness of breath, cough, abnormal CT of the chest. HISTORY OF PRESENT ILLNESS: He does have history of a [id number]-tvdg smoking, stopped smoking in 2007. He has not been diagnosed with COPD or asthma. He ____ exercise. He started to have increased shortness of breath, cough with yellow sputum production and fever 2 days ago. He denies chest pain. He has chest tightness. He denies wheezing. He denies runny nose or gastroesophageal reflux symptoms with asthma and he takes Flonase and Protonix. PAST MEDICAL HISTORY: Diabetes mellitus, hypertension, coronary artery disease status post CABG in 2007, abdominal aortic aneurysm repair and hyperlipidemia. ALLERGIES: No known drug allergies. MEDICATION: Currently he is on albuterol and Atrovent nebulizer t.i.d., azithromycin, Rocephin. SOCIAL HISTORY: History of 73-[id number]-kxav smoking, stopped smoking in 2007. FAMILY HISTORY: There is no history of lung disease. REVIEW OF SYSTEMS: As mentioned as above. He does snore and has excessive daytime sleepiness with ____. Other systems otherwise negative. PHYSICAL EXAMINATION: GENERAL: Overall weight gentleman. VITAL SIGNS: His O2 saturation is 96% on 5 liters of oxygen, respiratory rate 20, heart rate 66, blood pressure 100/61, temperature 97.8. HEENT: Normocephalic, atraumatic. Pupils are equal, round and reactive to light. Throat is clear. There is dependent palate, high tongue base. Nose: There is inflamed mucosa. NECK: There is no JVD, lymphadenopathy or organomegaly. CARDIOVASCULAR: Regular rate and rhythm. PMI is nondisplaced. CHEST: Inspection is normal. LUNGS: There is bibasilar crackles, a few end expiratory wheezing. ABDOMEN: Soft, bowel sounds are good. There is no mass. EXTREMITIES: There is no clubbing or cyanosis. LYMPHATICS: There is no lymphadenopathy. SKIN: Chronic changes. NEUROLOGIC: Alert and oriented x 3. LABORATORY DATA: I reviewed the following lab data: CT of the chest show central pulmonary embolism, lower lobe infiltrate, right more than left; emphysematous changes; hypodense lesions in both kidneys, hepatic steatosis and/or graft repair of abdomen and aortic aneurysm. Influenza A and B is negative. Sodium 138, potassium 4.7, chloride 102, CO2 of 26, glucose 130, BUN 23, creatinine 1.4. Troponin less than 0.01. WBC 14.2, hemoglobin 13.1, platelets 151. IMPRESSION: 1. Acute hypoxemic respiratory failure, multifactorial in etiology. 2. Abnormal CT of the chest show some pulmonary infiltrate. 3. Pneumonia. 4. Emphysema/chronic obstructive pulmonary disease. 5. Snoring and excessive daytime sleepiness on obesity problem with obstructive sleep apnea hypopnea syndrome. 6. Coronary artery disease. 7. Diabetes mellitus. 8. Hypertension. 9. Hyperlipidemia. PLAN AND RECOMMENDATION: 1. Titrate FiO2 to keep O2 saturation 92%. 2. Continue bronchodilator. 3. Add inhale to corticosteroid. 4. Sputum culture. 5. Urine for legionella and strep pneumoniae antigen. 6. Continue Rocephin and erythromycin. 7. I do recommend PFTs as an all questions. 8. I have discussed obstructive sleep apnea hypopnea syndrome. The importance of treatment, if one treated increased cardiovascular ____. I do recommend as put patient. 9. Agree with ultrasound of kidneys. 10. Protonix for stress ulcer prophylaxis. 11. I start Lovenox for DVT prophylaxis. 12. The findings and recommendations were discussed with the patient and his . He understood and agreed to proceed with the plan. I have answered all of the questions. Thank you very much for allowing me to participate in care of this very nice gentleman. HARPER TRUJILLO M.D. : FRANKY/candice JOB#: [id number] / [id number]
== END 2016-06-25 16:00 | disposition home or self-care (01) | DRG 189 ==
LOC: ER 18:24 → 5 NORTH 19:32
PROVIDERS: ADMIT Internal Medicine; ATTEND Internal Medicine
DX: J96.01 Acute respiratory failure with hypoxia (principal); J18.9 Pneumonia, unspecified organism; J44.0 Chronic obstructive pulmonary disease with (acute) lower respiratory infection; J44.1 Chronic obstructive pulmonary disease with (acute) exacerbation; I25.10 Atherosclerotic heart disease of native coronary artery without angina pectoris; G47.33 Obstructive sleep apnea (adult) (pediatric); E78.5 Hyperlipidemia, unspecified; E78.00 Pure hypercholesterolemia, unspecified; E11.9 Type 2 diabetes mellitus without complications; I10 Essential (primary) hypertension; E66.9 Obesity, unspecified; K21.9 Gastro-esophageal reflux disease without esophagitis; Z85.46 Personal history of malignant neoplasm of prostate; Z86.79 Personal history of other diseases of the circulatory system; Z87.891 Personal history of nicotine dependence; Z95.1 Presence of aortocoronary bypass graft; Z99.81 Dependence on supplemental oxygen; Z68.34 Body mass index [BMI] 34.0-34.9, adult
CPT/HCPCS: 36415; 71010; 71275; 76770; 80048; 82947; 83880; 84484; 85007; 85027; 87070; 87205; 87449; 87804; 93005; 94250; 94620; 94640; 96374; J0456; J0696; J1815; J2405; J7050; J7620; Q9967; 99285-25; J7030

== ENCOUNTER → 2016-09-04 | Outpatient (CLI) | payer MEDICARE ==
[~2016-09-04] MED LIST changes: +IOHEXOL 180 MG/ML 10 ML VIAL. ONE; +PROAIR HFA8.5 GM INH; +methylPREDNISolone ACETATE 40 MG/ML VIAL. ONE; +methylPREDNISolone ACETATE 80 MG/ML VIAL. ONE
--- NOTE | 2016-09-05 02:41 | PAIN ---
DATE OF SERVICE: 09/04/2016 DIAGNOSES: Lumbar radiculopathy with lumbar spinal stenosis and lumbar degenerative disk disease. HISTORY OF PRESENT ILLNESS: The patient is a 71-year-old male who returns for followup status post lumbar epidural steroid injections, last seen 03/22/2016. The patient did very well with about 80% improvement in the low back and right lower extremity pain. The patient reports that it is returning now over the past month or so with increased pain in low back radiating to the posterior gluteus, posterior lateral thigh, lateral anterior thigh, more on the right than the left, but occasionally on both sides. The patient reports anywhere from a 4 to a 9 on a scale of 10, 9 with increased activity, standing, walking. He has been sleeping well at night, has not been waking up from sleep. He reports the pain is radiating and constant, this is off and on, becoming more noticeable with activity here over the past few weeks. The patient reports no new motor or sensory deficits, no new bowel or bladder incontinence or other complaints. PHYSICAL EXAMINATION: VITAL SIGNS: Today, the patient's blood pressure is 129/68, pulse is 50, respirations are 20, temperature 97.8 degrees Fahrenheit. Height is 6 feet 1 inch, weight is 264 pounds. GENERAL: The patient is awake, alert, oriented, appropriate, has a very pleasant demeanor. HEENT: Head shows normocephalic, atraumatic. Extraocular movements are intact and symmetrical. Oral cavity shows mucous membranes moist and pink. Dentition is intact. NECK: Shows anterior throat is supple without palpable lymphadenopathy noted. Swallow reflex is symmetrical. CHEST: Shows normal on inspection. Breath sounds are clear to auscultation bilaterally. HEART: Shows S1 and S2 clear. ABDOMEN: Soft, nontender, nondistended. No palpable organomegaly. He has no new rebound or guarding demonstrated. BACK: Shows spine grossly in the midline. The lumbar paraspinous muscle shows some mild tenderness with palpation only diffusely in the middle and lower distribution, but is symmetrical with normal-appearing lumbar lordotic curvature. No radiation of pain. The patient has good rotational motion both laterally as well as extension and flexion of lumbar spine without difficulty. LOWER EXTREMITIES: Show deep tendon reflexes 2+, in the patella 1+, talocalcaneal tendons are equal. Motor exam is strong with 5/5 dorsiflexion, extension, quadriceps and hamstring flexion and symmetrical. Options were discussed with the patient. The patient's old chart was reviewed as his current medication regimen updated and current review of systems updated today as well. We will proceed with a lumbar epidural steroid injection first in the series with fluoroscopic guidance. Risks were again discussed including, but not limited to bleeding, infection, possibility of epidural hematoma and subsequent neurologic compromise, dural puncture, headaches, spinal cord and/or nerve damage, side effects of steroid medication and poor results regarding pain control. The patient understands and wished to proceed. The patient will return to the clinic in approximately 2 weeks for followup, was counseled as to return appointment, activity level and side effects to be aware of. DIAGNOSES: Lumbar radiculopathy with lumbar spinal stenosis, lumbar degenerative disk disease. PROCEDURES: Lumbar epidural steroid injection in translaminar approach at the L4-L5 level using C-arm fluoroscopic guidance under sterile prep and drape using local anesthetic. MEDICATION INJECTED: 120 mg Depo-Medrol plus 10 mL of preservative-free normal saline, 2 mL of Isovue for contrast. CONDITION AT DISCHARGE: Stable. The patient tolerated the procedure well and had no complications. DANDY QUIROGA MD DR: EVE/candice JOB#: [id number] / [id number]
== END | disposition home or self-care (01) ==
LOC: PNCL 11:04
PROVIDERS: ATTEND Anesthesiology
DX: M51.16 Intervertebral disc disorders with radiculopathy, lumbar region (principal); M48.06 Spinal stenosis, lumbar region; E78.00 Pure hypercholesterolemia, unspecified; I10 Essential (primary) hypertension; K21.9 Gastro-esophageal reflux disease without esophagitis; M19.90 Unspecified osteoarthritis, unspecified site; E11.9 Type 2 diabetes mellitus without complications; Z85.46 Personal history of malignant neoplasm of prostate; Z72.0 Tobacco use
CPT/HCPCS: 62323; J1030; J1040

== ENCOUNTER → 2017-03-27 | Outpatient (CLI) | payer MEDICARE ==
[~2017-03-27] MED LIST changes: -ASPI325T4 PO; +ASPI325T8 PO; -LANS15CA66 PO; +LANS15CA78 PO; -LANS30CA17 PO; +LANS30CA66 PO; -METO1TAB PO; +METO1TAB28 PO
--- NOTE | 2017-03-27 10:51 | PAIN ---
DATE OF SERVICE: 03/27/2017 DIAGNOSES: Lumbar radiculopathy with lumbar degenerative disk disease and lumbar spinal stenosis. HISTORY OF PRESENT ILLNESS: The patient is a 71-year-old male who returns for followup status post lumbar epidural steroid injection x 1, last seen 09/04/2016. The patient did very well with this with approximately 95% improvement. The pain has been returning now for about 3 weeks in the low back, more on the right side than the left, now posterior gluteus, posterior lateral thigh, lateral anterior thigh and medial lower leg to some extent. The patient reports it as a 10 on a scale 10 as worst, is 8-9 on average, 2 at its least, is a 3 today. The patient reports it is sharp, radiating, off and on in intensity, but becoming more noticeable, worse with activity, walking, standing, change in positions. The patient reports it is better with sitting or lying down, does not awake him from sleep at night, sleeps about 8 hours at a time without difficulty or interruption from sleep. The patient reports no loss of motor function, but increasing fatigability of the right lower extremity. PHYSICAL EXAMINATION: VITAL SIGNS: Today, the patient's blood pressure 138/65, pulse 53, respirations 18, temperature 97.5 degrees Fahrenheit, height 6 feet 1 inch, weights 255 pounds. GENERAL: The patient is awake, alert, oriented, appropriate, very pleasant demeanor. HEENT: Head shows normocephalic, atraumatic. Extraocular movements are intact, symmetrical. Oral cavity: Mucous membranes moist and pink. Dentition is intact. NECK: Shows anterior throat supple without palpable lymphadenopathy noted. Swallow reflex symmetrical. CHEST: Shows normal with inspection. Breath sounds clear to auscultation bilaterally. HEART: Shows S1, S2 clear. No murmurs auscultated. ABDOMEN: Soft, nontender, nondistended. No palpable organomegaly is noted. No rebound or guarding demonstrated. BACK: Shows spine grossly in the midline, normal appearing thoracic kyphosis and lumbar lordotic curvature. Lumbar paraspinous muscle shows symmetrical on inspection. On palpation shows some moderate tenderness bilaterally with palpation of the lumbar paraspinous muscles, mostly in the middle and lower distribution, slightly more on the right than the left, but present bilaterally. No tenderness over the sacrum or sacroiliac regions or the spinous processes. The patient has good rotational motion of lumbar spine, both laterally as well as extension and flexion without difficulty. EXTREMITIES: The patient's lower extremities show deep tendon reflexes 2+ in the patellar tendons and tendo calcaneus tendons are 1+ bilaterally. Motor exam is strong with 5/5 dorsiflexion, extension, quadriceps and hamstring flexion. Peripheral pulses are 1+ posterior tibial and dorsalis pedis pulses. No peripheral edema is noted. No clubbing, no cyanosis. Options were discussed with the patient. The patient's old chart was reviewed. His current medication regimen updated. Current review of systems updated today as well. We will proceed with a lumbar epidural steroid injections, the first in this series. Risks were again discussed including, but not limited to bleeding, infection, possibility of epidural hematoma, subsequent neurologic compromise, dural puncture, headaches, spinal cord and/or nerve damage, side effects of steroid medication and poor results regarding pain control. The patient understands and wished to proceed. The patient will return to clinic in approximately 2 weeks for followup, was counseled on return appointment, activity level and side effects to be aware of. DIAGNOSES: Lumbar radiculopathy with lumbar degenerative disk disease, lumbar spinal stenosis. PROCEDURE: Lumbar epidural steroid injection, translaminar approach at the L4-L5 level using C-arm fluoroscopic guidance under sterile prep and drape using local anesthetic. MEDICATION INJECTED: A total of 120 mg Depo-Medrol, plus 10 mL preservative-free normal saline and 2 mL Isovue for contrast. CONDITION AT DISCHARGE: Stable. The patient tolerated the procedure well, had no complications. DANDY QUIROGA MD DR: EVE/candice JOB#: [id number] / [id number]
== END ==
LOC: PNCL 07:56
PROVIDERS: ATTEND Anesthesiology
DX: M51.16 Intervertebral disc disorders with radiculopathy, lumbar region (principal); M48.061 Spinal stenosis, lumbar region without neurogenic claudication; I25.2 Old myocardial infarction; E78.00 Pure hypercholesterolemia, unspecified; I10 Essential (primary) hypertension; K21.9 Gastro-esophageal reflux disease without esophagitis; M19.90 Unspecified osteoarthritis, unspecified site; E11.9 Type 2 diabetes mellitus without complications; Z85.46 Personal history of malignant neoplasm of prostate; Z95.1 Presence of aortocoronary bypass graft
CPT/HCPCS: 62323; J1030; J1040

== ENCOUNTER → 2017-06-20 | Outpatient (CLI) | payer MEDICARE ==
[~2017-06-20] MED LIST changes: -ASPI325T8 PO; -ASPI81TA44 PO; -FLUT16SP NS; -HYDR-971 PO; +IOHEXOL 180 MG/ML 10 ML VIAL.; -IOHEXOL 180 MG/ML 10 ML VIAL. ONE; -LANS15CA78 PO; -LANS30CA66 PO; -LEUP22.52 IM; -LEVO750T31 PO; -LISI-334 PO; -MEGE20TA PO; -METF500T4 PO; -METO1TAB28 PO; -METO25TA2 PO; -METR500T PO; -PROAIR HFA8.5 GM INH; -QUIN324C3 PO; -SIMV20TA3 PO; +methylPREDNISolone ACETATE 40 MG/ML VIAL.; -methylPREDNISolone ACETATE 40 MG/ML VIAL. ONE; +methylPREDNISolone ACETATE 80 MG/ML VIAL.; -methylPREDNISolone ACETATE 80 MG/ML VIAL. ONE
== END | disposition home or self-care (01) ==
LOC: PNCL 09:24
DX: M51.16 Intervertebral disc disorders with radiculopathy, lumbar region (principal); M48.061 Spinal stenosis, lumbar region without neurogenic claudication; E78.00 Pure hypercholesterolemia, unspecified; K21.9 Gastro-esophageal reflux disease without esophagitis; I10 Essential (primary) hypertension; E11.9 Type 2 diabetes mellitus without complications; M19.90 Unspecified osteoarthritis, unspecified site; Z72.0 Tobacco use; Z86.39 Personal history of other endocrine, nutritional and metabolic disease; Z95.1 Presence of aortocoronary bypass graft; Z85.46 Personal history of malignant neoplasm of prostate
CPT/HCPCS: 62323; J1030; J1040; Q9965

== ENCOUNTER → 2017-09-04 | Outpatient (CLI) | payer MEDICARE ==
[2017-09-04 07:35] LABS: BLOOD UREA NITROGEN 19 mg/dL (8-26)
[2017-09-04 07:35] LABS: GFR 73.7
[2017-09-04] MEDS: IOHEXOL 300 MG/ML 100ML VIAL. IV (08:10)
== END | disposition home or self-care (01) ==
LOC: CT 06:46
DX: I71.4 Abdominal aortic aneurysm, without rupture (principal); J44.9 Chronic obstructive pulmonary disease, unspecified; I10 Essential (primary) hypertension; E11.9 Type 2 diabetes mellitus without complications; R16.1 Splenomegaly, not elsewhere classified; Z79.01 Long term (current) use of anticoagulants
CPT/HCPCS: 36415; 74175; 82565; 84520; Q9967

== ENCOUNTER → 2017-10-10 | Outpatient (CLI) | payer MEDICARE | END | disposition home or self-care (01) | LOC: PNCL 07:31 | DX: M51.16 Intervertebral disc disorders with radiculopathy, lumbar region (principal); M48.061 Spinal stenosis, lumbar region without neurogenic claudication | CPT/HCPCS: G0463 ==

== ENCOUNTER → 2017-10-31 | Outpatient (CLI) | payer MEDICARE ==
[~2017-10-31] MED LIST changes: +BUPIVACAINE MPF 0.25% 10 ML VIAL.; +LIDOCAINE 1% PF 2 ML VIAL.
== END | disposition home or self-care (01) ==
LOC: PNCL 11:10
DX: M51.16 Intervertebral disc disorders with radiculopathy, lumbar region (principal); M48.061 Spinal stenosis, lumbar region without neurogenic claudication; M47.817 Spondylosis without myelopathy or radiculopathy, lumbosacral region; I10 Essential (primary) hypertension; E78.00 Pure hypercholesterolemia, unspecified; K21.9 Gastro-esophageal reflux disease without esophagitis; M19.90 Unspecified osteoarthritis, unspecified site; E11.9 Type 2 diabetes mellitus without complications; F17.200 Nicotine dependence, unspecified, uncomplicated; Z79.82 Long term (current) use of aspirin; Z79.899 Other long term (current) drug therapy; Z95.1 Presence of aortocoronary bypass graft; Z85.46 Personal history of malignant neoplasm of prostate; Z79.84 Long term (current) use of oral hypoglycemic drugs
CPT/HCPCS: 64493; 64494; J1030; J1040; J3490; Q9965

== ENCOUNTER → 2017-11-14 | Outpatient (CLI) | payer MEDICARE | END | disposition home or self-care (01) | LOC: PNCL 10:08 | DX: M51.16 Intervertebral disc disorders with radiculopathy, lumbar region (principal); M47.896 Other spondylosis, lumbar region; M48.061 Spinal stenosis, lumbar region without neurogenic claudication | CPT/HCPCS: G0463 ==

== ENCOUNTER → 2017-12-03 | Outpatient (CLI) | payer MEDICARE ==
[2017-12-03 16:00] LABS: ADD MAN DIFF? NO
[2017-12-03 16:03] LABS: BASO # 0.1 x10^3/uL (0.0-0.2); BASO % 1 % (0-3); EOS # 0.1 x10^3/uL (0.0-0.7); EOS % 1 % (0-3); HEMATOCRIT 39.4 % (39.0-53.0); HEMOGLOBIN 13.8 g/dL (13.0-17.5); LYMPH # 1.3 x10^3/uL (1.0-4.8); LYMPH % 28 % (24-48); MEAN CORPUSCULAR HEMOGLOBIN 31 pg (25-35); MEAN CORPUSCULAR HGB CONC 35 g/dL (31-37); MEAN CORPUSCULAR VOLUME 88 fL (79-100); MONO # 0.5 x10^3/uL (0.0-1.1); MONO % 10 % (0-9); NEUT # 2.7 x10^3uL (1.8-7.7); NEUT % 59 % (31-73); PLATELET COUNT 172 x10^3/uL (140-400); RED BLOOD COUNT 4.49 x10^6/uL (4.30-5.70); RED CELL DISTRIBUTION WIDTH 15.3 % (11.5-14.5); WHITE BLOOD COUNT 4.5 x10^3/uL (4.0-11.0)
[2017-12-03 16:28] LABS: ALBUMIN 3.7 g/dL (3.4-5.0); ALBUMIN/GLOBULIN RATIO 1.3 (1.0-1.7); ALK PHOS 78 U/L (46-116); ALT (SGPT) 52 U/L (16-63); ANION GAP 9 (6-14); AST (SGOT) 29 U/L (15-37); BLOOD UREA NITROGEN 17 mg/dL (8-26); BUN/CREATININE RATIO 15 (6-20); CALCIUM 8.6 mg/dL (8.5-10.1); CARBON DIOXIDE 27 mmol/L (21-32); CHLORIDE 102 mmol/L (98-107); CREATININE 1.1 mg/dL (0.7-1.3); GLUCOSE 125 mg/dL (70-99); POTASSIUM 4.3 mmol/L (3.5-5.1); SODIUM 138 mmol/L (136-145); TOTAL BILIRUBIN 0.6 mg/dL (0.2-1.0); TOTAL PROTEIN 6.5 g/dL (6.4-8.2)
[2017-12-04 07:39] LABS: MRSA BY PCR Negative (Negative)
== END | disposition home or self-care (01) ==
LOC: SURGPAT 13:37
DX: Z01.818 Encounter for other preprocedural examination (principal); M51.16 Intervertebral disc disorders with radiculopathy, lumbar region; M48.062 Spinal stenosis, lumbar region with neurogenic claudication; I25.2 Old myocardial infarction; I11.9 Hypertensive heart disease without heart failure; E11.9 Type 2 diabetes mellitus without complications; E78.5 Hyperlipidemia, unspecified; J44.9 Chronic obstructive pulmonary disease, unspecified; E78.00 Pure hypercholesterolemia, unspecified; K21.9 Gastro-esophageal reflux disease without esophagitis; Z79.82 Long term (current) use of aspirin; Z79.84 Long term (current) use of oral hypoglycemic drugs; Z68.34 Body mass index [BMI] 34.0-34.9, adult; Z95.828 Presence of other vascular implants and grafts; Z95.1 Presence of aortocoronary bypass graft; Z86.79 Personal history of other diseases of the circulatory system; Z87.891 Personal history of nicotine dependence; Z85.46 Personal history of malignant neoplasm of prostate; Z86.39 Personal history of other endocrine, nutritional and metabolic disease
CPT/HCPCS: 36415; 80053; 85025; 87641; 93005

== ENCOUNTER 2017-12-06 07:12 | Day surgery (SDC) | payer MEDICARE ==
[~2017-12-06 07:12] MED LIST changes: -BUPIVACAINE MPF 0.25% 10 ML VIAL.; -IOHEXOL 180 MG/ML 10 ML VIAL.; +IV RINGERS,LACTATED 1000ML 1,000 ML IV; -LIDOCAINE 1% PF 2 ML VIAL.; +MORPHINE SULFATE 2 MG/ML DISP.SYRIN. IV; +ONDANSETRON PF 4 MG/2 ML VIAL. IV; +PROCHLORPERAZINE 10 MG/2 ML VIAL. IV; +fentaNYL PF VIAL 100 MCG/2 ML VIAL IV; -methylPREDNISolone ACETATE 40 MG/ML VIAL.; -methylPREDNISolone ACETATE 80 MG/ML VIAL.
[2017-12-06 07:48] LABS: POC GLUCOSE 136 mg/dL (70-99)
[2017-12-06] MEDS ORDERED: PROPOFOL 20 ML IV (08:15)
[2017-12-06] MEDS ORDERED: PHENYLEPHRINE in 0.9% NACL PF 1 MG/10 ML SYRINGE. IV (08:15)
[2017-12-06] MEDS ORDERED: ePHEDrine PF IN SALINE 50 MG/5 ML DISP.SYRIN IV (08:15)
[2017-12-06] MEDS ORDERED: LIDOCAINE 2% PF Vial for OR 5 ML VIAL. (08:15)
[2017-12-06] MEDS ORDERED: DEXAMETHASONE SOD PHOS 20 MG/5 ML VIAL. (08:16)
[2017-12-06] MEDS ORDERED: ROCURONIUM 50 MG/5 ML VIAL. (08:16)
[2017-12-06] MEDS ORDERED: PROPOFOL 50 ML IV ×2 (08:16→09:45)
[2017-12-06] MEDS ORDERED: ONDANSETRON PF 4 MG/2 ML VIAL. (08:16)
[2017-12-06] MEDS ORDERED: SUCCINYLCHOLINE 200 MG/10 ML VIAL. (08:17)
[2017-12-06] MEDS ORDERED: fentaNYL PF VIAL 100 MCG/2 ML VIAL (08:17)
[2017-12-06] MEDS ORDERED: REMIFENTANIL 2 MG VIAL. IV (08:24)
[2017-12-06] MEDS ORDERED: NEOSTIGMINE METHYLSULFATE 5 MG/5 ML SYRINGE. (09:25)
[2017-12-06] MEDS ORDERED: GLYCOPYRROLATE 1 MG/5 ML VIAL. (09:25)
[2017-12-06] MEDS: BUPIVAC MPF-EPI 0.5%-1:200000 30 ML VIAL. INJ (09:34)
[2017-12-06] MEDS: BACITRACIN 50,000 UNIT in IV NORMAL SALINE 1000ML BAG 1,000 ML IRR (09:34)
[2017-12-06] MEDS: THROMBIN TOPICAL 20,000 UNIT SPRAY.SYRN KIT TP (09:34)
[2017-12-06] MEDS: KETOROLAC 60 MG/2 ML INJ FOR OR. (09:34)
[2017-12-06] MEDS: GELATIN SPONGE SIZE 100. (09:34)
[2017-12-06] MEDS ORDERED: DESFLURANE > 120 MINUTES IH (10:15)
[2017-12-06 11:19] LABS: POC GLUCOSE 156 mg/dL (70-99)
[2017-12-06] MEDS: LIDOCAINE 1% PF 2 ML VIAL. ID (12:18)
[2017-12-06] MEDS: HYDROcodone/APAP 7.5/325MG 1 TAB TABLET PO (12:19)
== END 2017-12-06 13:10 | disposition home or self-care (01) ==
LOC: SURG 07:12
DX: M48.062 Spinal stenosis, lumbar region with neurogenic claudication (principal); E11.9 Type 2 diabetes mellitus without complications; I11.9 Hypertensive heart disease without heart failure; E78.00 Pure hypercholesterolemia, unspecified; K21.9 Gastro-esophageal reflux disease without esophagitis; J44.9 Chronic obstructive pulmonary disease, unspecified; Z85.46 Personal history of malignant neoplasm of prostate; Z98.890 Other specified postprocedural states; Z83.3 Family history of diabetes mellitus; Z82.49 Family history of ischemic heart disease and other diseases of the circulatory system; Z87.891 Personal history of nicotine dependence; Z72.89 Other problems related to lifestyle; Z79.82 Long term (current) use of aspirin; Z79.84 Long term (current) use of oral hypoglycemic drugs; Z79.899 Other long term (current) drug therapy; M19.90 Unspecified osteoarthritis, unspecified site; Z88.8 Allergy status to other drugs, medicaments and biological substances; Z95.1 Presence of aortocoronary bypass graft; Z99.81 Dependence on supplemental oxygen
CPT/HCPCS: 63030; 76000; 82962; 88304; 88311; 97162-GP; 97530-GP; G8978-CJ-GP; G8979-CJ-GP; G8980-CJ-GP; J0330; J0690; J1100; J1885; J2001; J2370; J2405; J2704; J2710; J3010; J3490; J7030; J7120

== ENCOUNTER → 2018-05-01 | Outpatient (CLI) | payer MEDICARE ==
[2017-12-06 13:00] VITALS: BP 142/59
[~2018-05-01] MED LIST changes: +ALBU2.5V8 INH; +ASPI325T8 PO; +ASPI81TA59 PO; +CETI10TA22 PO; +DOCU-109 PO; +FLUT16SP NS; +GADOBUTROL 10 MMOL/10 ML VIAL IV ONE; +HYDR-2765 PO; +HYDR-3164 PO; -IV RINGERS,LACTATED 1000ML 1,000 ML IV; +LANS15CA78 PO; +LANS30CA66 PO; +LEUP22.52 IM; +LEVO750T31 PO; +LISI-334 PO; +MEGE20TA PO; +METF500T16 PO; +METO1TAB28 PO; +METO25TA2 PO; +METR500T PO; -MORPHINE SULFATE 2 MG/ML DISP.SYRIN. IV; +NAPR220T70 PO; -ONDANSETRON PF 4 MG/2 ML VIAL. IV; -PROCHLORPERAZINE 10 MG/2 ML VIAL. IV; +QUIN324C3 PO; +SIMV20TA3 PO; -fentaNYL PF VIAL 100 MCG/2 ML VIAL IV
--- NOTE | 2018-05-01 15:03 | KCIC ---
EXAMINATION: Magnetic resonance imaging (MRI) of the lumbar spine with and without contrast 05/01/2018 1:15 PM HISTORY: Radiculopathy. Prior surgery December 2017. Bilateral hip pain on walking. TECHNIQUE: Multiplanar multi-weighted MRI of the lumbar spine was performed with and without intravenous contrast using the standard lumbar spine protocol. Contrast information: 12 cc Gadavist was administered intravenously COMPARISON: None available. FINDINGS: There is concavity of the inferior endplate of L1 with approximately 50 percent height loss. Calcified disc material is identified at T12-L1. Vertebral body heights are otherwise maintained. Marrow signal intensity is normal in all sequences. Alignment is normal. There is sacralization of the fifth lumbar segment. There is congenital narrowing of the spinal canal secondary to shortened pedicles. Epidural lipomatosis is noted at L1-L2 and L2-L3. Renal cortical cysts are identified bilaterally. Infrarenal abdominal aortic aneurysm status post endograft repair is noted measuring approximately 4.3 cm. L1-L2: There is a mild to moderate circumferential disc bulge. There is mild facet arthropathy. There is mild bilateral neuroforaminal stenosis, left greater than right. There is mild spinal canal stenosis. L2-L3: There is a moderate circumferential disc bulge. There is mild to moderate facet arthropathy with. There is moderate bilateral neuroforaminal stenosis, right greater than left. Mild spinal canal stenosis. Findings are exacerbated by epidural lipomatosis. L3-L4: There is a moderate circumferential disc bulge with a left far lateral annular fissure. There is moderate facet arthropathy with ligamentum flavum infolding. There is severe bilateral neuroforaminal stenosis, right greater than left. Mild spinal canal stenosis. L4-L5: There is a circumferential disc bulge with a left central disc protrusion extending into the foraminal zone. There is narrowing of the left lateral recess. There is moderate to severe facet arthropathy. There is moderate bilateral neuroforaminal stenosis. No significant spinal canal stenosis. Right hemilaminectomy changes are identified with associated enhancing granulation tissue. No recurrent disc herniation is visualized as left central disc protrusion predominantly enhances suggestive of epidural scar tissue. L5-S1: Disc is normal in configuration. There is moderate facet arthropathy. No neuroforaminal or spinal canal stenosis. IMPRESSION: Postoperative changes are identified from spinal decompression at L4-L5 with microdiscectomy changes. No recurrent disc herniation is suspected. There is no residual spinal canal stenosis. IMPRESSION: Mild degenerative changes of the lumbar spine as described in detail above. Electronically signed by: Shelia Galicia MD (05/01/2018 2:59 PM) [id number]
== END | disposition home or self-care (01) ==
LOC: KCIC MRI 13:02
PROVIDERS: ATTEND Neurological Surgery
DX: M12.88 Other specific arthropathies, not elsewhere classified, other specified site (principal); M48.061 Spinal stenosis, lumbar region without neurogenic claudication; I71.4 Abdominal aortic aneurysm, without rupture; N28.1 Cyst of kidney, acquired; M43.27 Fusion of spine, lumbosacral region
CPT/HCPCS: 72158; A9585

== ENCOUNTER → 2018-05-27 | Outpatient (CLI) | payer MEDICARE ==
[2017-12-06 13:00] VITALS: BP 142/59
[~2018-05-27] MED LIST changes: -GADOBUTROL 10 MMOL/10 ML VIAL IV ONE; +IOHEXOL 180 MG/ML 10 ML VIAL. ONE; +methylPREDNISolone ACETATE 40 MG/ML VIAL. ONE; +methylPREDNISolone ACETATE 80 MG/ML VIAL. ONE
--- NOTE | 2018-05-27 13:13 | PAIN ---
DATE OF SERVICE: 05/27/2018 PROGRESS NOTE FOR PAIN CLINIC DIAGNOSES: Lumbar radiculopathy with lumbar degenerative disk disease, lumbar spinal stenosis and spondylosis with post-lumbar laminectomy syndrome. HISTORY OF PRESENT ILLNESS: The patient is a 72-year-old male who returns for followup status post previous lumbar epidural steroid injections and facet joint injections, last seen on 11/14/2017. The patient did very well with the facet injections, however, had surgery with Dr. Cosme in December, did very well with complete resolution of his right-sided radicular symptoms. His chief complaint now is pain in the left side of the low back and into the left lower extremity. The patient reports it is in the posterior gluteus, posterolateral thigh, lateral anterior thigh, medial thigh, medial lower leg and calf, which is tight and tingling on the left side radiating, becoming more constant, more noticeable, worse with walking, standing, change in positions, getting in and out of the bed. It awakens him from sleep occasionally but not every night. The patient reports it is a 9 on a scale of 10 at its worst, 7 on average, 2 at its least and is a 3 today. The patient reports no new motor or sensory deficits. Again, the right leg is doing much better and after surgery, he was increasing his distance walking, doing household activities with greater ease and comfort, but the pain on the left side is becoming more noticeable. The patient did have MRI scan, which we discussed with he and his spouse, showing still a circumferential bulge in the left central disk protrusion at L4-L5, reaching into the foraminal zone, narrowing of the left lateral recess. The patient reports no new motor or sensory deficits and no new bowel or bladder incontinence or other complaints. PHYSICAL EXAMINATION: VITAL SIGNS: The patient's blood pressure 130/68, pulse 55, respirations 16 and temperature 97.4 degrees Fahrenheit. Height 6 feet 1 inch and weight is 272 pounds. GENERAL: The patient is awake, alert, oriented, appropriate and very pleasant demeanor. HEENT: Head shows normocephalic and atraumatic. Extraocular movements are intact and symmetrical. Oral cavity: Mucous membranes moist and pink. Dentition is intact. NECK: Shows anterior throat supple without palpable lymphadenopathy noted. Swallow reflex is symmetrical. CHEST: Shows normal on inspection. Breath sounds clear to auscultation bilaterally. HEART: Shows S1 and S2 clear. No murmurs auscultated. ABDOMEN: Soft, nontender and nondistended. No palpable organomegaly is noted. No rebound or guarding demonstrated. BACK: Shows spine grossly in the midline, normal-appearing thoracic kyphosis and lumbar lordotic curvature. Lumbar paraspinous musculature shows symmetrical and well-healed surgical scar noted in the midline. With palpation of the lumbar paraspinous musculature shows moderate tenderness bilaterally but only diffusely without radiation, without tenderness, without trigger points that shows the patient has good rotational motion of the lumbar spine with some moderate tenderness with extension but not with forward flexion. EXTREMITIES: Lower extremities show deep tendon reflexes 2+ in the patellar and 1+ tendo-calcaneus tendons. Motor exam is strong with 5/5 dorsiflexion, extension, quadriceps and hamstring flexion and symmetrical. Peripheral pulses are 1+ posterior tibial. No peripheral edema is noted bilaterally. Options were discussed with the patient. The patient's old chart was reviewed as well as his current medication regimen updated. Current review of systems updated today as well. We will proceed with a first in the series of lumbar epidural steroid injection today with fluoroscopic guidance. Risks were again discussed including, but not limited to bleeding, infection, possibility of epidural hematoma, subsequent neurological compromise, dural puncture, headaches, spinal cord and/or nerve damage, side effects of steroid medication and poor results regarding pain control. The patient understands and wished to proceed. The patient will return to the clinic in approximately 2 weeks for followup, was counseled as to return appointment, activity level and side effects to be aware of. DIAGNOSES: Lumbar radiculopathy with lumbar degenerative disk disease and lumbar spinal stenosis and spondylosis. PROCEDURE: Lumbar epidural steroid injection, translaminar approach, L4-L5 level using C-arm fluoroscopic guidance under sterile prep and drape using local anesthetic. MEDICATION INJECTED: A total of 120 mg Depo-Medrol plus 10 mL of preservative-free normal saline and 2 mL of Isovue for contrast. CONDITION AT DISCHARGE: Stable. The patient tolerated the procedure well and had no complications. DANDY QUIROGA MD DR: EVE/candice JOB#: [id number] / [id number]
== END | disposition home or self-care (01) ==
LOC: PNCL 10:15
PROVIDERS: ATTEND Anesthesiology
DX: M51.16 Intervertebral disc disorders with radiculopathy, lumbar region (principal); M48.061 Spinal stenosis, lumbar region without neurogenic claudication; M96.1 Postlaminectomy syndrome, not elsewhere classified; M47.26 Other spondylosis with radiculopathy, lumbar region; Z88.8 Allergy status to other drugs, medicaments and biological substances
CPT/HCPCS: 62323; J1030; J1040; Q9965

== ENCOUNTER → 2018-06-10 | Outpatient (CLI) | payer MEDICARE ==
[2017-12-06 13:00] VITALS: BP 142/59
--- NOTE | 2018-06-10 12:50 | PAIN ---
DATE OF SERVICE: 06/10/2018 PROGRESS NOTE FOR PAIN CLINIC DIAGNOSES: Lumbar radiculopathy with lumbar degenerative disk disease, lumbar spinal stenosis and post-lumbar laminectomy syndrome. HISTORY OF PRESENT ILLNESS: The patient is a 72-year-old male who returns for followup status post lumbar epidural steroid injection x 1 on 05/27/2018. The patient did very well with approximately 80% improvement in his low back and left lower extremity pain. The patient reports pain is beginning to return, but is still significantly decreased. The patient reports it is a 7 on a scale of 10 at its worst, 3 on average and a 1 at its least. The patient reports that the leg is doing much better, still some pain in the low posterior gluteus on the left side and lateral thigh. The patient reports it is sharp, tight, occasionally more constant, but generally only with walking. He has increased his activity with greater distance walking, able to do household activities, travelling with much greater ease and comfort and sleeping well at night. It does not awaken him from sleep. The patient reports no new motor or sensory deficits. No new bowel or bladder incontinence or other complaints. PHYSICAL EXAMINATION: VITAL SIGNS: The patient's blood pressure is 125/65, pulse 62, respirations 16 and temperature 97.3 degrees Fahrenheit. Height is 6 feet 1 inch, weight is 267 pounds. GENERAL: The patient is awake, alert, oriented, appropriate, very pleasant demeanor. The patient is accompanied by his . HEENT EXAMINATION: Shows normocephalic, atraumatic. Extraocular movements are intact and symmetrical. Oral cavity, mucous membranes are moist and pink. Dentition is intact. NECK: Shows anterior throat supple, without palpable lymphadenopathy noted. Swallow reflex is symmetrical. CHEST: Shows normal on inspection. Breath sounds are clear to auscultation bilaterally. HEART: Shows S1, S2 clear. No murmurs auscultated. ABDOMEN: Soft, nontender and nondistended. No palpable organomegaly is noted. No rebound or guarding demonstrated. BACK: The patient's back shows spine grossly in the midline. Normal-appearing thoracic kyphosis and minor flattening of the lumbar lordotic curvature. Lumbar paraspinous musculature shows symmetrical on inspection. Well-healed surgical scars again noted. On palpation, it shows some moderate tenderness bilaterally, but only diffusely in the low lumbar distribution, without asymmetry, without atrophy or hypertrophy. No trigger points. No radiation of pain. No tenderness over the sacrum or sacroiliac region. The patient has good rotational motion of the lumbar spine, both laterally as well as extension and flexion without difficulty. EXTREMITIES: The patient's lower extremities show deep tendon reflexes 2+ in the patella, 1+ tendo calcaneus tendons. Motor exam is 5/5 with dorsiflexion, extension, quadriceps and hamstring flexion and equal. Peripheral pulses are 1+ posterior tibia. No peripheral edema is noted bilaterally. Options were discussed with the patient. The patient's old chart was reviewed as was his current medication regimen updated. Current review of systems updated today as well. We will proceed with a second in a series of lumbar epidural steroid injection today with fluoroscopic guidance. Risks were again discussed including, but not limited to bleeding, infection, possibility of epidural hematoma, subsequent neurologic compromise, dural puncture, headaches, spinal cord and/or nerve damage, side effects of steroid medication and poor results regarding pain control. The patient understands and wished to proceed. The patient will return to the clinic in approximately 2 weeks for followup. He was counseled on his return appointment, activity level and side effects to be aware of. DIAGNOSES: Lumbar radiculopathy with lumbar degenerative disk disease, lumbar spinal stenosis and spondylosis and post-lumbar laminectomy syndrome. PROCEDURE: Lumbar epidural steroid injection in translaminar approach at L4-L5 level using C-arm fluoroscopic guidance under sterile prep and drape using local anesthetic. MEDICATIONS INJECTED: A total of 120 mg Depo-Medrol plus 10 mL of preservative-free normal saline and 2 mL of Isovue for contrast. CONDITION AT DISCHARGE: Stable. The patient tolerated the procedure well, had no complications. DANDY QUIROGA MD DR: EVE/candice JOB#: [id number] / [id number]
== END | disposition home or self-care (01) ==
LOC: PNCL 10:13
PROVIDERS: ATTEND Anesthesiology
DX: M51.16 Intervertebral disc disorders with radiculopathy, lumbar region (principal); M48.061 Spinal stenosis, lumbar region without neurogenic claudication; M96.1 Postlaminectomy syndrome, not elsewhere classified; M47.26 Other spondylosis with radiculopathy, lumbar region; Z88.8 Allergy status to other drugs, medicaments and biological substances
CPT/HCPCS: 62323; J1030; J1040; Q9965

== ENCOUNTER → 2018-08-21 | Outpatient (CLI) | payer MEDICARE ==
[2017-12-06 13:00] VITALS: BP 142/59
--- NOTE | 2018-08-22 05:55 | PAIN ---
DATE OF SERVICE: 08/21/2018 DIAGNOSES: Lumbar radiculopathy with lumbar degenerative disk disease, lumbar spinal stenosis and lumbar spondylosis with post-lumbar laminectomy syndrome. HISTORY OF PRESENT ILLNESS: The patient is a 73-year-old male who returns for followup status post lumbar epidural steroid injection x 2, last seen 06/10/2018. The patient did well, about 100% improvement for about 2 months. The patient reports the pain returned over the past week or two in the low back and bilateral lower extremities, worse on the left than the right, radiating to the posterior gluteus, posterior thigh with tightness and across the low back bilaterally. The patient reports it is a 6 on a scale of 10 at its worse, 5 on average, 2 at its least and is a 5 today. The patient reports it is sharp, also alternating with tight pain across the low back into the left lower extremity. No radiation of the right lower extremity, but significant pain in the right low back, which was not improved after his last injection. The patient reports no new motor or sensory deficits. Reports it awakens him from sleep occasionally, but about every 6-7 hours and only in the last few weeks. The patient reports no new motor or sensory deficits, no bowel or bladder incontinence or other complaints. PHYSICAL EXAMINATION: VITAL SIGNS: The patient's blood pressure is 143/73, pulse 69, respirations are 18, temperature is 98.7 degrees Fahrenheit, height 6 feet 1 inch, weight is 273 pounds. GENERAL: The patient is awake, alert, oriented, appropriate, very pleasant demeanor. HEENT: Head shows normocephalic, atraumatic. Extraocular movements are intact and symmetrical. Oral cavity, mucous membranes are moist and pink. Dentition is intact. NECK: Shows anterior throat supple without palpable lymphadenopathy noted. Swallow reflex is symmetrical. CHEST: Shows normal on inspection. Breath sounds clear to auscultation bilaterally. HEART: Shows S1, S2 clear. No murmurs auscultated. ABDOMEN: Soft, nontender, nondistended. No palpable organomegaly is noted. No rebound or guarding demonstrated. BACK: Shows spine grossly in the midline. Normal appearing thoracic kyphosis and lumbar lordotic curvature. The patient's lumbar paraspinous musculature shows well-healed surgical scar, also symmetrical paraspinous muscles with palpation shows some moderate tenderness diffusely bilaterally but only in the low lumbar distribution, slightly more on the left than the right. The patient has good rotational motion of lumbar spine with some minor tenderness with right and left lateral rotation greater than 10 degrees and also with extension to 10 degrees, forward flexion shows no significant increase in pain. EXTREMITIES: Lower extremities show deep tendon reflexes 2+ in the biceps and triceps tendons. Motor exam is 5/5 with dorsiflexion, extension, quadriceps and hamstring flexion. Peripheral pulses are 1+ posterior tibial. No peripheral edema is noted bilaterally. Options were discussed with the patient. The patient's old chart was reviewed as his current medication regimen and updated. Current review of systems is updated today as well. We will proceed with a third in the series of lumbar epidural steroid injection today with fluoroscopic guidance. Risks were again discussed including, but not limited to bleeding, infection, possibility of epidural hematoma and subsequent neurological compromise, dural puncture, headaches, spinal cord and/or nerve damage, side effects of steroid medication and poor results regarding pain control. The patient understands and wished to proceed. The patient to return to clinic in approximately 2 weeks for followup, was counseled on return appointment, activity level and side effects to be aware of. DIAGNOSES: Lumbar radiculopathy with lumbar degenerative disk disease, lumbar spinal stenosis, spondylosis and post-lumbar laminectomy syndrome. PROCEDURE: Lumbar epidural steroid injection, translaminar approach L5-S1 level using C-arm fluoroscopic guidance under sterile prep and drape using local anesthetic. MEDICATION INJECTED: A total of 120 mg Depo-Medrol plus 10 mL of preservative-free normal saline and 2 mL of Isovue for contrast. CONDITION AT DISCHARGE: Stable. The patient tolerated the procedure well, had no complications. DANDY QUIROGA MD DR: EVE/candice JOB#: [id number] / [id number]
== END | disposition home or self-care (01) ==
LOC: PNCL 13:28
PROVIDERS: ATTEND Anesthesiology
DX: M51.16 Intervertebral disc disorders with radiculopathy, lumbar region (principal); M48.061 Spinal stenosis, lumbar region without neurogenic claudication; M47.26 Other spondylosis with radiculopathy, lumbar region; M96.1 Postlaminectomy syndrome, not elsewhere classified; Z88.8 Allergy status to other drugs, medicaments and biological substances
CPT/HCPCS: 62323; J1030; J1040; Q9965